=== PATIENT | female | born 1995 | race Caucasian/White ===

== ENCOUNTER 2019-03-03 15:46 | Emergency (ER) | payer BC ==
[~2019-03-03] VITALS: Ht 154.9 cm; Wt 74.8 kg
--- OUTSIDE RECORDS SUMMARY | 2019-03-03 15:49 | XMS REPORT | Continuity of Care Document ---
Author Author Autumn mauro [facility], [place] Interface Address Unknown Phone Unavailable Problems Problem Status Onset Date Classification Date Reported Comments Source Immunization advised 10/03/2018 Diagnosis 10/03/2018 [facility] Non-allergic rhinitis 10/03/2018 Diagnosis 10/03/2018 [facility] Body mass index 30+ - obesity 10/03/2018 Diagnosis 10/03/2018 [facility] Non-allergic Rhinitis 10/03/2018 Problem 10/03/2018 [facility] Immunization Advised 10/03/2018 Problem 10/03/2018 [facility] Allergic reaction to insect bite 04/12/2018 Diagnosis 04/12/2018 [facility] Body Mass Index 30+ - Obesity 04/12/2018 Problem 10/03/2018 [facility] Allergic Reaction to Insect Bite 04/12/2018 Problem 04/12/2018 [facility] Insect bite - wound 04/17/2017 Diagnosis 04/17/2017 [facility] Medications Medication Details Route Status Patient Instructions Ordering Provider Order Date Source [place] Fe 10/24 (28) 1 mg-20 mcg (21)/75 mg (7) tablet [place] Fe 10/24 (28) 1 mg-20 mcg (21)/75 mg (7) tablet TAKE 1 TABLET BY MOUTH DAILY. Active [facility] Medrol (Josh) 4 mg tablets in a dose pack Medrol (Josh) 4 mg tablets in a dose pack Take PO as directed Active [facility] Dexamethasone phosphate 4 MG/ML Injectable Solution dexamethasone 4 mg/mL injection solution Take 1 mL by injection route. Active [facility] Hydroxyzine Hydrochloride 25 MG Oral Tablet hydroxyzine HCl 25 mg tablet Take 1 tablet twice a day by oral route as needed for 7 days. Active [facility] Microgestin FE 10/24 (28) 1 mg-20 mcg (21)/75 mg (7) tablet Microgestin FE 10/24 (28) 1 mg-20 mcg (21)/75 mg (7) tablet TAKE 1 TABLET BY MOUTH DAILY. Active [facility] Triamcinolone Acetonide 0.001 MG/MG Topical Ointment triamcinolone acetonide 0.1 % topical ointment APPLY A THIN LAYER TO THE AFFECTED AREA(S) BY TOPICAL ROUTE 2 TIMES PER DAY PRN ITCHING/REDNESS Active [facility] Azithromycin 1000 MG Powder for Oral Suspension azithromycin 1 gram oral packet Active [facility] Azithromycin 250 MG Oral Tablet azithromycin 250 mg tablet Active [facility] benzonatate 100 MG Oral Capsule benzonatate 100 mg capsule Active [facility] Ceftriaxone 250 MG Injection ceftriaxone 250 mg solution for injection Active [facility] Clindamycin 150 MG Oral Capsule clindamycin 150 mg capsule Active [facility] Lidocaine Hydrochloride 10 MG/ML Injection lidocaine 10 mg/mL (1 %) injection solution Active [facility] Mupirocin 0.02 MG/MG Topical Ointment mupirocin 2 % topical ointment APPLY A SMALL AMOUNT TO THE AFFECTED AREA BY TOPICAL ROUTE 3 TIMES PER DAY Active [facility] Ondansetron 8 MG Disintegrating Oral Tablet ondansetron 8 mg disintegrating tablet Active [facility] Codeine Phosphate 2 MG/ML / Guaifenesin 20 MG/ML Oral Solution Virtussin AC 10 mg-100 mg/5 mL oral liquid Active [facility] Allergies, Adverse Reactions, Alerts Substance Category Reaction Severity Reaction type Status Date Reported Comments Source Penicillins Allergy to substance 04/17/2017 [facility] Omnicef Hives Allergy to substance 04/17/2017 [facility] Immunizations Immunization Date Given Site Status Last Updated Comments Source meningococcal, unspecified formulation 10/05/2012 completed [facility] Tdap 10/05/2006 completed [facility] Results Order Name Results Value Reference Range Date Interpretation Comments Source Vital Signs Vital Sign Value Date Comments Source Diastolic (mm Hg) 72 10/03/2018 [facility] Height 61 10/03/2018 [facility] Systolic (mm Hg) 108 10/03/2018 [facility] Weight 160 10/03/2018 [facility] Diastolic (mm Hg) 76 04/12/2018 [facility] Height 61 04/12/2018 [facility] Systolic (mm Hg) 110 04/12/2018 [facility] Weight 165 04/12/2018 [facility] Diastolic (mm Hg) 82 04/17/2017 [facility] Height 61 04/17/2017 [facility] Systolic (mm Hg) 112 04/17/2017 [facility] Weight 150 04/17/2017 [facility] Encounters Location Location Details Encounter Type Encounter Number Reason For Visit Attending Provider ADM Date DC Date Status Source [place] - [facility] - [id number] GARRETT NaikC: [address] [place] [address], Ph. [id number] Christelle Ahn 04/17/2017 [facility] [place] - [facility] - [id number] Dawsonroy, DIRECTOR HOME-C: [address] [place] [address], Ph. [id number] Yanni Branch 04/12/2018 [facility] [place] - [facility] - [id number] Angela Sarina, DIRECTOR HOME-C: [address] [place] [address], Ph. [id number] Yanni Branch 04/12/2018 [facility] [place] - [facility] - [id number] Dawsondawson DIRECTOR HOME-C: [address] [place] [address], Ph. [id number] Yanni Branch 10/03/2018 [facility] Procedures Procedure Code Date Perfomer Comments Source
--- OUTSIDE RECORDS SUMMARY | 2019-03-03 15:49 | XMS REPORT | Encounter Summary ---
Author Organization Unknown Address [address] [place] [address] Phone [phone] Reason for Visit Medical Complaint Instructions 1. Insect bite - wound mupirocin 2 % topical ointment Discussion Note: None recorded. Patient educational handouts: No information available. Plan of Care Reminders Provider Appointments None recorded. Lab None recorded. Referral None recorded. Procedures None recorded. Surgeries None recorded. Imaging None recorded. Medications Name Start Date azithromycin 1 gram oral packet azithromycin 250 mg tablet benzonatate 100 mg capsule ceftriaxone 250 mg solution for injection clindamycin 150 mg capsule lidocaine 10 mg/mL (1 %) injection solution Microgestin FE 1/20 (28) 1 mg-20 mcg (21)/75 mg (7) tablet TK 1 T PO QD mupirocin 2 % topical ointment APPLY A SMALL AMOUNT TO THE AFFECTED AREA BY TOPICAL ROUTE 3 TIMES PER DAY ondansetron 8 mg disintegrating tablet Virtussin AC 10 mg-100 mg/5 mL oral liquid Medications Administered None recorded. Vitals Height Weight BMI Blood Pressure 5 ft 1 in 150 lbs 28.3 kg/m2 112/82 mm[Hg] Lab Results None recorded. Allergies Code Code System Name Reaction Severity Onset 22515 RxNorm Omnicef Hives Penicillins Problems None recorded. Procedures None recorded. Vaccine List None recorded. Social History Smoking Status Never Smoker Past Encounters 04/17/2017 Insect Bite - Wound Christelle Ahn PA-C: [address] [place] [address], Ph. History of Present Illness Axno-Ollahrh-Pmrua-Skin Lesion-Bite 1 Reported By: Patient HPI: Location: legs. Quality: itchy. Severity: worsening. Duration: has noted for <1 week. Onset/Timing: abrupt onset. Context: no new detergents or skin products, no one else with similar rash, bite/sting exposure. Associated Symptoms: no fever/chills, no muscle aches, no headache, no cold symptoms, no nausea, no vomiting, no diarrhea, no urinary symptoms Review of Systems Basic Reported By: Patient Constitutional: Constitutional: no fever Eyes: Eyes: no eye complaints Jhax-Aoga-Unewm-Throat: Ears: no ear complaints. Nose: no nose/sinus problems. Mouth/Throat: no sore throat, no bleeding gums, no mouth complaints, no teeth problems Cardiovascular: Cardiovascular: no chest pain, no shortness of breath, no known heart murmur Respiratory: Respiratory: no cough, no wheezing, no shortness of breath Gastrointestinal: Gastrointestinal: no abdominal pain, no vomiting / diarrhea Genitourinary: Genitourinary: no urinary complaints, no discharge Musculoskeletal: Musculoskeletal: no muscle aches, no muscle weakness, no arthralgias/joint pain, no back pain Skin: Skin: no abnormal / changing mole, no jaundice, rash Neurologic: Neurologic: no loss of consciousness, no weakness, no numbness, no seizures, no dizziness, no headaches Physical Exam Adult Basic, Adult Female Complete, Laceration, Expanded Skin Exam 1 Reported By: Patient Constitutional: General Appearance: healthy-appearing, well-nourished, well-developed. Level of Distress: NAD. Ambulation: ambulating normally Psychiatric: Mental Status: active and alert. Orientation: to time, to place, to person Lungs: Respiratory effort: no dyspnea, no tachypnea, no use of accessory muscles, no intercostal retractions. Percussion: no dullness, flatness, or hyperresonance. Auscultation: breath sounds normal Cardiovascular: Heart Auscultation: RRR, no murmurs. Neck vessels: no carotid bruits. Pulses including femoral / pedal: normal throughout Wound: Appearance Depth: 2 mm, Length: 1 cm, Width: 1 cm, warm, dry, aligned margins, no active bleeding, no tenderness, no erythema, normal capillary refill, weeping: serous
--- OUTSIDE RECORDS SUMMARY | 2019-03-03 15:49 | XMS REPORT | Encounter Summary ---
Author Organization Unknown Address [address] [place] [address] Phone [phone] Reason for Visit Bilateral Medical Complaint Instructions 1. Allergic reaction to insect bite triamcinolone acetonide 0.1 % topical ointment dexamethasone 4 mg/mL injection solution hydroxyzine HCl 25 mg tablet culture, aerobic 2. Body mass index 30+ - obesity body mass index: care instructions Discussion Note Pt is in NAD; Verbalizes understanding of all instructions with no questions at this time. Plan of Care Patient Instructions Take Hydroxyzine as directed and stop benadryl. Do not drive or operate machinery while on this medication. Use topical steroid as directed. Take medications as prescribed and follow up with a PCP within 2-3 if symptoms worsen as discussed. In case of emergency: worsening swelling, difficulty breathing, or shortness of breath call 911 or go to nearest ER. Recommend follow a low sodium/fat/carb diet and exercise 30-45 mins/d 3-4 days a week once symptoms resolve. Reminders Provider Appointments None recorded. Lab Culture, Aerobic 04/12/2018 [facility] Referral None recorded. Procedures None recorded. Surgeries None recorded. Imaging None recorded. Medications Name Start Date dexamethasone 4 mg/mL injection solution Take 1 mL by injection route. hydroxyzine HCl 25 mg tablet Take 1 tablet twice a day by oral route as needed for 7 days. Microgestin FE 1/20 (28) 1 mg-20 mcg (21)/75 mg (7) tablet TAKE 1 TABLET BY MOUTH DAILY. triamcinolone acetonide 0.1 % topical ointment APPLY A THIN LAYER TO THE AFFECTED AREA(S) BY TOPICAL ROUTE 2 TIMES PER DAY PRN ITCHING/REDNESS Medications Administered Name Date dexamethasone 4 mg/mL injection solution Take 1 mL by injection route. [id number]:17 Vitals Height Weight BMI Blood Pressure 5 ft 1 in 165 lbs 31.2 kg/m2 110/76 mm[Hg] Lab Results None recorded. Allergies Code Code System Name Reaction Severity Status Onset 10513 RxNorm Omnicef Hives Active Penicillins Active Problems Name Status Onset Date Source Body Mass Index 30+ - Obesity Active 04/12/2018 Allergic Reaction to Insect Bite Active 04/12/2018 Procedures None recorded. Vaccine List Vaccine Type meningococcal, unspecified formulation 10/05/2012 Tdap 10/05/2006 Social History Smoking Status Never Smoker Past Encounters 04/12/2018 Allergic Reaction to Insect Bite; Body Mass Index 30+ - Obesity Yanni Branch, [facility]: [address] [place] [address], Ph. History of Present Illness Qhtf-Mifhhxo-Xvwes-Skin Lesion-Bite 1 Reported By: Patient HPI: Location: legs. Quality: not painful, itchy, weeping, red, multiple, localized, swollen. Severity: worsening, moderate. Duration: has noted for <1 week. Onset/Timing: gradual onset, recurring. Context: no new detergents or skin products, no one else with similar rash, bite/sting exposure. Aggravating factors: clothing. Alleviating factors: nothing gives relief. Associated Symptoms: no fever/chills, no muscle aches, no headache, no cold symptoms, no nausea, no vomiting, no diarrhea, no urinary symptoms Review of Systems Basic Reported By: Patient Constitutional: Constitutional: no fever Eyes: Eyes: no eye complaints Sjui-Wthx-Dyyxf-Throat: Ears: no ear complaints. Nose: no nose/sinus [...] no abnormal / changing mole, no jaundice, rash, itching, growths/lesions Neurologic: Neurologic: no loss of consciousness, no weakness, no numbness, no seizures, no dizziness, no headaches Physical Exam Adult Basic, Adult Female Complete Reported By: Patient Constitutional: General Appearance: obese. Level of Distress: NAD. Ambulation: ambulating normally Psychiatric: Mental Status: active and alert. Orientation: to time, to place, to person Eyes: Lids and Conjunctivae: non-injected, no discharge Neck: Neck: supple. Lymph Nodes: no cervical LAD Lungs: Respiratory effort: no dyspnea, no tachypnea, no use of accessory muscles, no intercostal retractions. Auscultation: breath sounds normal Cardiovascular: Heart Auscultation: RRR, no murmurs Neurologic: Gait and Station: normal gait, normal station Skin: Inspection and palpation: rash
--- OUTSIDE RECORDS SUMMARY | 2019-03-03 15:49 | XMS REPORT | Encounter Summary ---
Author Organization Unknown Address [address] [place] [address] Phone [phone] Reason for Visit Bilateral Medical Complaint Instructions [...] solution Take 1 mL by injection route. [id number] Vitals Height Weight BMI Blood Pressure 5 ft 1 in 165 lbs 31.2 kg/m2 110/76 mm[Hg] Lab Results None recorded. Allergies Code Code System Name Reaction Severity Status Onset 77896 RxNorm Omnicef Hives Active Penicillins Active Problems Name Status Onset Date Source Body Mass Index 30+ - Obesity Active 04/12/2018 Allergic Reaction to Insect Bite Active 04/12/2018 Procedures None recorded. Vaccine List Vaccine Type meningococcal, unspecified formulation 10/05/2012 Tdap 10/05/2006 Social History Smoking Status Never Smoker Past Encounters 04/12/2018 Allergic Reaction to Insect Bite; Body Mass Index 30+ - Obesity Yanni Branch, [facility]: [address] [place] [address], Ph. History of Present Illness Amqb-Flpnmbg-Znsan-Skin Lesion-Bite 1 Reported By: Patient HPI: Location: [...] no fever Eyes: Eyes: no eye complaints Ibiu-Yxbs-Twxya-Throat: Ears: no ear complaints. Nose: no nose/sinus [...]
--- OUTSIDE RECORDS SUMMARY | 2019-03-03 15:49 | XMS REPORT | Clinical Summary ---
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 x 5 per tablet 10/28/2018 Discontinued MICROGESTIN FE , Take 1 tablet 84 tablet 4 1 mg-20 mcg (21)/75 mg by mouth 8 (7) per tablet daily. 01/10/2019 Discontinued MICROGESTIN FE , Take 1 tablet 84 tablet 0 1 mg-20 mcg (21)/75 mg by mouth 9 (7) per tablet daily for 90 days. Active Problems Not on file Encounters Care Team Description Date Type Specialty Td Nunez MD Well woman exam (Primary Dx) 01/10/2019 Office Visit Obstetrics and Gynecology Td Nunez MD 10/28/2018 Telephone Obstetrics and Gynecology Jodi Kelly, ANA 07/19/2018 Telephone Obstetrics and Gynecology Jodi Kelly, ANA 05/10/2018 Telephone Obstetrics and Gynecology after 03/02/2018 Family History Medical History Relation Name Comments Diabetes Maternal Grandmother Stroke Maternal Grandmother Hypertension Mother Diabetes Paternal Grandmother Relation Name Status Comments Maternal Grandmother Mother Paternal Grandmother Social History Date Tobacco Use Types Packs/Day Years Used Never Smoker Smokeless Tobacco: Never Used Alcohol Use Drinks/Week oz/Week Comments Yes Sex Assigned at Date Recorded Not on file Industry Job Start Date Occupation Not on file Not on file Not on file Travel End Travel History Travel Start No recent travel history available. Last Filed Vital Signs Time Taken Vital Sign Reading 01/10/2019 11:25 AM CDT Blood Pressure 125/85 01/10/2019 11:25 AM CDT Pulse 79 - Temperature - - Respiratory Rate - - Oxygen Saturation - - Inhaled Oxygen - Concentration 01/10/2019 11:25 AM CDT Weight 74.8 kg (165 lb) 01/10/2019 11:25 AM CDT Height 154.9 cm (5' 1") 01/10/2019 11:25 AM CDT Body Mass Index 31.18 Plan of Treatment Care Team Description Date Type Specialty Visaria, Td Chatterjee MD [address] [facility] [place] [address] 01/11/2020 Office Visit Obstetrics and Gynecology Health Maintenance Due Date Last Done Comments CHLAMYDIA SCREENING 2010 INFLUENZA VACCINE 05/05/2019 Procedures Comments Procedure Name Priority Date/Time Associated Diagnosis CHLAMYDIA/N. GONORRHOEAE Routine 01/10/2019 RNA, TMA 11:40 AM CDT THINPREP TIS PAP REFLEX Routine 01/10/2019 HPV MRNA E6/E7 11:40 AM CDT PAP W/AGE BASED SCREENING Routine 01/10/[address] Well woman [address]/NG 11:40 AM CDT after 03/02/2018 Results * PAP W/AGE BASED SCREENING PLUS CT/NG (01/10/2019 11:40 AM CDT) Comment Comment: [employer] This order for age-based DIAGNOSTICS-[place] cervical cancer and STI ING II screening follows ACOG guidelines(PB 168, 140, AAQ701). See individual assays for performing site location. Specimen Swab Resulting Agency Comment Performing Organization Information: Site ID: [id number] [facility]: [facility] Address: [address] [place] [address] Director: Dr. Mason Choe Performing Organization Address City/State/Zipcode Phone Number [facility] [address] [facility] [place] [address] II * CHLAMYDIA/N. GONORRHOEAE RNA, TMA (01/10/2019 11:40 AM CDT) Chlamydia NOT DETECTED NOT DETECTED [facility] trachomatis [facility]ST[facility] RNA, TMA ING II Neisseria NOT DETECTED NOT DETECTED [facility] gonorrhoeae [facility]NOST[facility] RNA, TMA ING II (Always Comment: [facility] message) This test was performed using DIAGNOSTICS-[place] the APTIMA COMBO2 Assay ING II ([employer] The analytical performance characteristics of this assay, when used to test SurePath specimens have been determined by [facility]. Specimen Resulting Agency Comment Performing Organization Information: Site ID: [id number] Name: [facility] Address: [address] [place] [id number] Director: Dr. Mason Choe Performing Organization Address [facility] Phone Number [facility] [employer] [place] [address] II * THINPREP TIS PAP REFLEX HPV mRNA E6/E7 (01/10/2019 11:40 AM CDT) Clinical None given [facility] information DIAGNOSTICS [place] Date of last NONE GIVEN [facility] menstrual DIAGNOSTICS period [place] Prev. pap: NONE GIVEN [facility] DIAGNOSTICS [place] Prev. bx: NONE GIVEN [facility] [place] Source None given [employer] [place] Statement of Comment: [facility] adequacy Satisfactory for evaluation. DIAGNOSTICS Endocervical/transformation [place] zone component present. Age and/or menstrual status not provided Interpretation/ Comment: Negative for [facility] result: intraepithelial lesion or DIAGNOSTICS malignancy. [place] Comment Comment: [facility] This Pap test has been DIAGNOSTICS evaluated with computer LOPEZ assisted technology. [employer] Comment: [facility] t AMT, CT(ASCP) DIAGNOSTICS CT screening location: [address], [place] [id number] Comment Comment: [facility] EXPLANATORY NOTE: DIAGNOSTICS The Pap is a screening test [place] for cervical cancer. It is not a diagnostic test and is subject to false negative and false positive results. It is most reliable when a satisfactory sample, regularly obtained, is submitted with relevant clinical findings and history, and when the Pap result is evaluated along with historic and current clinical information. Specimen Resulting Agency Comment Performing Organization Information: Site ID: [id number]: [facility] Address: [address] [place] [phone] Director: Merly Gannon Performing Organization Address City/State/Zipcode Phone Number [employer] [place] [id number] [place] [address] after 03/02/2018 Insurance Type Payer Benefit Subscriber ID Effective Phone Address Plan / Dates Group PPO BCBS BCBS xxxxxxxxxxxx 2018- CHOICE Present PPO/KYUNG OREILLY PPO (Home) [address] [place] [id number] Advance Directives Patient has advance care planning documents on file. For more information, johnathan swann contact: Bentley Leahy [address] [place] [address]
--- OUTSIDE RECORDS SUMMARY | 2019-03-03 15:49 | XMS REPORT | Encounter Summary ---
Author Organization Unknown Address [address] [place] [id number] Phone [phone] Reason for Visit Medical Complaint Instructions 1. Non-allergic rhinitis Medrol (Josh) 4 mg tablets in a dose pack 2. Body mass index 30+ - obesity body mass index: care instructions 3. Immunization advised Discussion Note Pt is in NAD; Verbalizes understanding of all instructions with no questions at this time. Plan of Care Patient Instructions Take flonase over the counter as needed for congestion. [place] one spray in each nostril twice a day. Take a warm, steamy shower, blow your nose thereafter, and spray in each nostril. Tilt your head up for about 10 seconds and breath through your mouth. Do not sniff or snort the medication in or else the medication will go to your throat and not be absorbed appropriately. Take over the counter Xyzal for allergy like symptoms like runny nose, sneezing and watery eyes. Take steroid taper as directed and with food to avoid heartburn. Do not take NSAIDs (like ibuprofen) while taking steroids. Take medications as prescribed and follow up with a PCP within 2-3 if symptoms worsen as discussed. Recommend follow a low sodium/fat/carb diet and exercise 30-45 mins/d 3-4 days a week once symptoms resolve. Reminders Provider Appointments None recorded. Lab None recorded. Referral None recorded. Procedures None recorded. Surgeries None recorded. Imaging None recorded. Medications Name Start Date [place] Fe 10/24 (28) 1 mg-20 mcg (21)/75 mg (7) tablet TAKE 1 TABLET BY MOUTH DAILY. Medrol (Josh) 4 mg tablets in a dose pack Take PO as directed Medications Administered None recorded. Vitals Height Weight BMI Blood Pressure 5 ft 1 in 160 lbs 30.2 kg/m2 108/72 mm[Hg] Lab Results None recorded. Allergies Code Code System Name Reaction Severity Status Onset 22737 RxNorm Omnicef Hives Active Penicillins Active Problems Name Status Onset Date Source Body Mass Index 30+ - Obesity Active 04/12/2018 Non-allergic Rhinitis Active 10/03/2018 Immunization Advised Active 10/03/2018 Procedures None recorded. Vaccine List Vaccine Type meningococcal, unspecified formulation 10/05/2012 Tdap 10/05/2006 Social History Smoking Status Never Smoker Past Encounters 10/03/2018 Non-allergic Rhinitis; Body Mass Index 30+ - Obesity; Immunization Advised Yanni Branch, [facility]: [address] [facility] [address], Ph. History of Present Illness Ichxo-Zioxigtzux-Qqtlwbr Reported By: Patient HPI: Location: head/sinuses, throat. Quality: sore throat, nasal/sinus congestion. Duration: 3days. Severity: moderate. Onset/Timing: gradual. Context: no sick contacts, no foreign travel, non-smoker, allergies. Modifying factors: OTC medication. Associated Symptoms: no sputum production, no shortness of breath, no wheezing, no change in number of pillows needed to sleep at night, no sweats, no significant weight gain, no significant weight loss, no morning cough, no vomiting, no diarrhea, no rash, no nausea, no fever, no muscle aches, sore throat, headache; nasal congestion and post nasal drainage Note:
Review of Systems:ROS as noted in the HPI Review of Systems Basic Reported By: Patient Physical Exam Adult Basic, Adult Female Complete Reported By: Patient Constitutional: General Appearance: obese. Level of Distress: NAD. Ambulation: ambulating normally Psychiatric: Mental Status: active and alert. Orientation: to time, to place, to person Eyes: Lids and Conjunctivae: non-injected, no discharge, no pallor. Corneas: grossly intact. Lens: clear Cuv-Nqgs-Qdmzw-Throat: Ears: no lesions on external ear, no outer ear tenderness, EACs clear, TMs clear. Hearing: no hearing loss. Nose: no lesions on external nose, nares patent, no septal deviation, nasal passages clear, no sinus tenderness, nasal discharge--rhinorrhea, post nasal drip; B/L NTs pale and edematous. Lips, Teeth, and Gums: no mouth or lip ulcers, no bleeding gums, normal dentition. Oropharynx: moist mucous membranes, no erythema, no exudates, tonsils not enlarged Neck: Neck: supple. Lymph Nodes: no cervical LAD Lungs: Respiratory effort: no dyspnea, no tachypnea, no use of accessory muscles, no intercostal retractions. Auscultation: breath sounds normal Cardiovascular: Heart Auscultation: RRR, no murmurs Neurologic: Gait and Station: normal gait, normal station. Cranial Nerves: grossly intact
[2019-03-03] MEDS ORDERED: KETOROLAC TROMETHAMINE 30 MG/ML VIAL IV ONE (15:56)
[2019-03-03] MEDS ORDERED: ONDANSETRON HCL INJ 2MG/ML 2ML 2 MG/ML VIAL IV ONE (15:56)
[2019-03-03] MEDS ORDERED: SODIUM CHLORIDE 0.9% 500ML 500 ML IV ONE (16:00)
--- NOTE | 2019-03-03 17:01 | Diagnostic Imaging Report ---
Exam: Head CT without contrast History: Headache, migraine, blurred vision Comparison studies: None Technique: Axial images were obtained from the skull base to the vertex. Coronal and sagittal images reconstructed from the axial data. Dose modulation, iterative reconstruction, and/or weight based adjustment of the mA/kV was utilized to reduce the radiation dose to as low as reasonably achievable. Radiation dose: Total DLP: 832 mGy*cm. Estimated effective dose: DLP x 0.015 Intravenous contrast: None Findings: Scalp: No abnormalities. Bones: No fractures, blastic or lytic lesions. Brain sulci: Appropriate for age. Ventricles: Normal in size and configuration. No hydrocephalus. Extra-axial spaces: No masses, no fluid collection. Parenchyma: No abnormal densities. No masses, acute hemorrhage, acute or chronic vascular insults. Sellar/suprasellar region: No abnormalities. Craniocervical junction: Patent foramen magnum. No Chiari one malformation. IMPRESSION: No acute abnormalities. Signed by: Dr. Pavan Waldrop M.D. on 03/03/2019 4:58 PM
[2019-03-03 18:55] VITALS: BP 114/90
== END 2019-03-03 18:55 | disposition home or self-care (01) ==
LOC: ER 15:46
DX: G43.111 Migraine with aura, intractable, with status migrainosus (principal)
CPT/HCPCS: 70450; 99283; J1885; J2405; J7040

== ENCOUNTER 2019-08-09 14:22 | Emergency (ER) | payer BC ==
[~2019-08-09] VITALS: Ht 154.9 cm; Wt 74.8 kg
--- OUTSIDE RECORDS SUMMARY | 2019-08-09 14:26 | XMS REPORT ---
Author Author [facility] Address Unknown Phone Unavailable Care Team Providers Care Fence Installer Helper Name Role Phone Bryn EWING Unavailable Unavailable Problems This patient has no known problems. Allergies, Adverse Reactions, Alerts This patient has no known allergies or adverse reactions. Medications This patient has no known medications. Results Test Description Test Time Test Comments Text Results Atomic Results Result Comments CT BRAIN WO 2019-03-03 16:48:00 [facility] [address] [place] [address] Patient Name: MARTHA CARDENAS MR #: [id number] : 1995 Age/Sex: 23/F Req #: [id number] Adm Physician: Ordered by: LILIAN CONRAD PERFORMANCE TESTER Report #: [id number] Location: ER Room/Bed: Procedure: [id number] CT/CT BRAIN WO Exam Date: 03/03/19 Exam Time: 1630 REPORT STATUS: Signed Exam: Head CT without contrast History: Headache, migraine, blurred vision Comparison studies: None Technique: Axial images were obtained from the skull base to the vertex. Coronal and sagittal images reconstructed from the axial data. Dose modulation, iterative reconstruction, and/or weight based adjustment of the mA/kV was utilized to reduce the radiation dose to as low as reasonably achievable. Radiation dose: Total DLP: 832 mGy*cm. Estimated effective dose: DLP x 0.015 Intravenous contrast: None Findings: Scalp: No abnormalities. Bones: No fractures, blastic or lytic lesions. Brain sulci: Appropriate for age. Ventricles: Normal in size and configuration. No hydrocephalus. Extra-axial spaces: No masses, no fluid collection. Parenchyma: No abnormal densities. No masses, acute hemorrhage, acute or chronic vascular insults. Sellar/suprasellar region: No abnormalities. Craniocervical junction: Patent foramen magnum. No Chiari one malformation. IMPRESSION: No acute abnormalities. Signed by: Dr. Nuha Waldrop M.D. on 03/03/2019 4:58 PM Dictated By: NUHA WALDROP MD [id number] Transcribed By: CRISTÓBAL on 03/03/19 COPY TO: LILIAN CONRAD NP
[2019-08-09] MEDS ORDERED: KETOROLAC TROMETHAMINE 30 MG/ML VIAL IV STA (15:32)
[2019-08-09] MEDS ORDERED: METOCLOPRAMIDE HCL 10 MG/2ML VIAL IV ONE (15:45)
[2019-08-09] MEDS ORDERED: DIPHENHYDRAMINE HCL INJ 50 MG/ML VIAL IV ONE (15:45)
[2019-08-09] MEDS ORDERED: SODIUM CHLORIDE 0.9% 1000ML 1,000 ML IV ONE (15:45)
--- NOTE | 2019-08-09 17:13 | Diagnostic Imaging Report ---
Exam: Head CT without contrast History: Headache, migraine, blurry vision Comparison studies: Head CT 03/03/2019 Technique: Axial images were obtained from the skull base to the vertex. Coronal and sagittal images reconstructed from the axial data. Dose modulation, iterative reconstruction, and/or weight based adjustment of the mA/kV was utilized to reduce the radiation dose to as low as reasonably achievable. Radiation dose: Total DLP: 832 mGy*cm. Estimated effective dose: DLP x 0.015 Intravenous contrast: None Findings: Scalp: No abnormalities. Bones: No fractures, blastic or lytic lesions. Brain sulci: Appropriate for age. Ventricles: Normal in size and configuration. No hydrocephalus. Extra-axial spaces: No masses, no fluid collection. Parenchyma: No abnormal densities. No masses, acute hemorrhage, acute or chronic vascular insults. Sellar/suprasellar region: No abnormalities. Craniocervical junction: Patent foramen magnum. No Chiari one malformation. Incidental findings: Atherosclerotic calcifications in the carotid siphons. Relatively underpneumatized left mastoid compared to the contralateral right mastoid may be congenital or sequela of chronic inflammation. IMPRESSION: 1. No acute abnormalities. 2. No changes from the prior head CT of 03/03/2019. Signed by: Dr. Pavan Waldrop M.D. on 08/09/2019 5:10 PM
[2019-08-09 18:03] LABS: BASOPHILS % 0.3 % (0.0-1.0); EOSINOPHILS % 0.4 % (0.0-6.0); HEMOGLOBIN 15.3 g/dL (12.0-16.0); LYMPHOCYTES # (AUTO) 2.3 (1.0-3.2); LYMPHOCYTES % 29.6 % (18.0-39.1); MEAN CORPUSCULAR HEMOGLOBIN 33.7 pg (28-32); MEAN CORPUSCULAR HGB CONC 37.3 g/dL (31-35); MEAN CORPUSCULAR VOLUME 90.3 fL (81-99); MONOCYTES # (AUTO) 0.4 (0.2-0.8); MONOCYTES % 5.3 % (4.4-11.3); NEUTROPHILS # (AUTO) 5.1 (2.1-6.9); NEUTROPHILS % 64.1 % (38.7-80.0); PLATELET COUNT 223 x10e3/uL (140-360); RED BLOOD COUNT 4.54 x10e6/uL (3.6-5.1); RED CELL DISTRIBUTION WIDTH 11.5 % (11.7-14.4)
[2019-08-09 18:13] LABS: ALANINE AMINOTRANSFERASE 20 IU/L (0-55); ALBUMIN 4.4 g/dL (3.5-5.0); ALBUMIN/GLOBULIN RATIO 1.4 (0.8-2.0); ALKALINE PHOSPHATASE 46 IU/L (40-150); ANION GAP 13.6 mmol/L (8-16); BLOOD UREA NITROGEN 6 mg/dL (7-26); BUN/CREATININE RATIO 8 (6-25); CALCIUM 9.7 mg/dL (8.4-10.2); CARBON DIOXIDE 23 mmol/L (22-29); CHLORIDE 106 mmol/L (98-107); CREATININE, SERUM 0.71 mg/dL (0.57-1.11); EST GLOMERULAR FILTRATION RATE > 60 ML/MIN (60-); GLUCOSE 85 mg/dL (74-118); POTASSIUM 3.6 mmol/L (3.5-5.1); SODIUM 139 mmol/L (136-145)
== END 2019-08-09 18:42 | disposition home or self-care (01) ==
LOC: ER 14:22
DX: G43.409 Hemiplegic migraine, not intractable, without status migrainosus (principal); Z88.0 Allergy status to penicillin; Z88.8 Allergy status to other drugs, medicaments and biological substances
CPT/HCPCS: 36415; 70450; 80053; 84702; 85025; 99284; J1200; J1885; J2765; J7030